=== PATIENT | male | born 1970 | race Caucasian/White ===

== ENCOUNTER 2024-07-06 21:42 | Emergency (ER) | payer OTHER, SELFPAY ==
[2024-07-06 21:55] VITALS: BP 143/90
[2024-07-06 22:27] LABS: ALT (SGPT) 30 U/L (0-50); AST (SGOT) 28 U/L (17-59); Albumin 4.3 g/dl (3.5-5.0); Alkaline Phosphatase 64 U/L (38-126); Blood Urea Nitrogen 20 mg/dl (9-20); Calcium 9.9 mg/dl (8.4-10.2); Carbon Dioxide 26 mmol/L (22-30); Chloride 105 mmol/L (98-107); Glucose 112 mg/dl (70-99); Potassium 3.7 mmol/L (3.5-5.1); Sodium 140 mmol/L (135-145); Total Bilirubin 0.7 mg/dl (0.2-1.3); Total Protein 6.6 g/dl (6.3-8.2); eGFR > 60.00
[2024-07-06 22:38] LABS: Troponin I < 0.012 ng/ml
[2024-07-06 23:24] VITALS: BMI 30.6
[2024-07-06 23:27] VITALS: BP 126/81
[2024-07-06 23:28] VITALS: BP 126/81
[2024-07-07] VITALS: BP 134/80
--- NOTE | 2024-07-07 00:18 | ED.GENMED ---
History of Present Illness
General
Chief Complaint: Cardiac Symptoms
Source: patient
Exam Limitations: none
Time Seen by Provider: 07/06/24 23:26
Nursing documentation reviewed up to this point in time: agreed with
History of Present Illness
History of Present Illness:
53-year-old male with history of HTN, HLD presents for episode of 'galloping heartbeat'. He states a month ago he had that symptom and at that time his blood pressure was elevated, he saw Dr. Marino who is his sheet sewer for his blood pressure
and he was told nothing had to be done at that time but if it happens again he discussed possibly a Holter monitor would be needed.
Patient states at 715 this evening getting dinner around in his kitchen he felt his heart rate suddenly become irregular and felt like it was 'beating really hard,' heart rate was 85 blood pressure was 140/90 at that time. He denies shortness of
breath or chest pain. He states the symptoms lasted off and on for about 2 hours. They subsided once he got here and he has had no further episodes.
Drinks 2 cups of coffee daily and has had no more than that.
Past History
Past History
ED Past Medical History: HTN and Hypercholesterolemia
Social History
Tobacco: Non-smoker
Alcohol: None
Personal:
Living: with family
Employment: Employed
Review of Systems
Review of Systems
Allergies reviewed?: Yes
All Other Systems: ROS reviewed and negative except as documented in HPI and ROS
Constitutional: Denies fever or fatigue
Respiratory: Denies trouble breathing
Cardiac: Reports palpitations; Denies chest pain
ABD/GI: Denies abdominal pain or nausea
Musculoskeletal: Reports no symptoms
Skin: Reports no symptoms
Neurological: Reports no symptoms
Phy Exam
Physical Exam
Physical Exam:
GENERAL: No acute distress. A&Ox3.
CONSTITUTIONAL: Afebrile.
EYES: clear, conjunctivae normal
ENMT: moist mucus membranes
RESPIRATORY: Regular respirations, nonlabored, lungs clear.
CARDIOVASCULAR: Regular rate and rhythm, no murmurs, no rubs.
GI: Soft, nontender, normal BS
MUSCULOSKELETAL: Moves with ease. Well perfused.
SKIN: Warm, dry, pink
PSYCH: Normal mood and affect. Well kept, interactive and appropriate
NEUROLOGIC: Awake, alert and oriented. No focal neurological deficits
Course
Orders/Labs/Results
Orders:
Orders
07/06/24 21:43
Electrocardiogram (*1) Urgent
Reason for Study: Chest Pain
EKG- Treatment ONCE
07/06/24 22:06
Comprehensive Metabolic Panel Urgent
Troponin I Urgent
07/06/24 22:25
Complete Blood Count/With Diff Urgent
07/07/24 00:25
Add On- LAB Urgent
Tests Added?: TSH
Abnormal Lab Results
07/06/24
22:06
Glucose 112 H mg/dl
(70-99)
07/06/24 22:06
Vital Signs
Initial and Last Documented VS:
Initial Vital Signs
Temp Pulse Resp BP Pulse Ox
98.5 F 76 18 143/90 98
07/06/24 21:55 07/06/24 21:55 07/06/24 21:55 07/06/24 21:55 07/06/24 21:55
Last Documented Vital Signs
Temp Pulse Resp BP Pulse Ox
97.8 F 66 18 126/81 94
07/06/24 23:28 07/06/24 23:28 07/06/24 23:28 07/06/24 23:28 07/06/24 23:28
MDM/Problems Addressed
Differential Diagnosis Includes:
PVCs, PACs, A-fib
MDM/Problems Addressed:
53-year-old male with history of HTN, HLD presents for episode of 'galloping heartbeat'. He states a month ago he had that symptom and at that time his blood pressure was elevated, he saw Dr. Marino who is his sheet sewer for his blood pressure
and he was told nothing had to be done at that time but if it happens again he discussed possibly a Holter monitor would be needed.
Patient states at 715 this evening getting dinner around in his kitchen he felt his heart rate suddenly become irregular and felt like it was 'beating really hard,' heart rate was 85 blood pressure was 140/90 at that time. He denies shortness of
breath or chest pain. He states the symptoms lasted off and on for about 2 hours. They subsided once he got here and he has had no further episodes.
Drinks 2 cups of coffee daily and has had no more than that.
07/03/2024 12:15 AM
CBC was hemolyzed and patient does not want to wait for another draw
CMP normal
Troponin normal
EKG NSR
Patient will call Dr. Freitas's office tomorrow to discuss his visit
ED Attending Note
-
Portions of this chart may have been created with voice recognition software.� Occasional wrong word or��sound alike� substitutions may have occurred due to the inherent limitations of voice recognition software.
Discharge Plan
Departure
Patient Disposition: Home (Routine Discharge)
Date of Disposition: 07/07/24
Time of Disposition: 00:23
Patient with high blood pressure during this ER visit?: No
Condition: Good
Discharge Problem:
Heart palpitations
Instructions: Overview of heart arrhythmias, Palpitations - ED discharge instructions
Prescriptions:
No Action
lisinopril 5 mg Tablet
5 mg PO DAILY
Referrals:
Guille Marino MD [Active] - Tomorrow
Naz Bhatt CRNP [Family Provider] -
Activity Restrictions/Additional Instructions:
As we discussed, nothing worrisome in your workup here today.
Call Dr. Marino's office tomorrow and inform them of today's visit
Interventions
Interventions:
*Risk Screen - Suicide Last Done: 07/06/24 21:55
*General Assessment Last Done: 07/06/24 21:55
*Neglect/Abuse Screening Last Done: 07/06/24 21:55
*ED- Fall Risk Assessment Last Done: 07/06/24 21:55
*ED COVID-19 Vaccine History Last Done: 07/06/24 21:55
ED- Pulmonary Assessment Last Done: 07/06/24 23:29
ED- Cardiac Assessment Last Done: 07/06/24 23:29
Discharge Date and Time
Print Language: LITHUANIAN
== END 2024-07-07 00:34 | disposition home or self-care (01) ==
LOC: EMR 21:42
PROVIDERS: Emergency Medicine; EMERGENCY PHYSICIAN Emergency Medicine; FAMILY PHYSICIAN Nurse Practitioner; REFERRING PHYSICIAN Internal Medicine
DX: R00.2 Palpitations (principal); I10 Essential (primary) hypertension; E78.00 Pure hypercholesterolemia, unspecified
CPT/HCPCS: 99283; 80053; 84443; 84484; 93005

== ENCOUNTER → 2024-08-22 11:12 | Outpatient (REF) | payer OTHER, SELFPAY | LOC: RCS 11:12 | PROVIDERS: ATTENDING PHYSICIAN Internal Medicine; FAMILY PHYSICIAN Nurse Practitioner | DX: R09.89 Other specified symptoms and signs involving the circulatory and respiratory systems (principal); R00.2 Palpitations | CPT/HCPCS: 93306 ==

== ENCOUNTER 2025-02-20 13:42 | Emergency (ER) | payer OTHER, SELFPAY ==
[2025-02-20 13:55] VITALS: BP 155/90
[2025-02-20 14:25] LABS: Hematocrit 42.9 % (39.0-52.0); Hemoglobin 14.8 g/dL (13.0-18.0); Mean Corp Hgb Conc. 34.5 g/dL (33.0-37.0); Mean Corpuscular Volume 79.9 fL (80.0-94.0); Nucleated Red Blood Cells % 0 % (-); Platelet Count 210 10^3/uL (130-400); Red Cell Dist. Width 12.4 % (11.5-14.5)
[2025-02-20 14:30] LABS: APTT 27.8 Sec (23.4-35.0)
[2025-02-20 14:39] LABS: ALT (SGPT) 50 U/L (0-50); AST (SGOT) 37 U/L (17-59); Albumin 4.7 g/dl (3.5-5.0); Alkaline Phosphatase 83 U/L (38-126); Blood Urea Nitrogen 19 mg/dl (9-20); Calcium 9.5 mg/dl (8.4-10.2); Carbon Dioxide 30 mmol/L (22-30); Chloride 100 mmol/L (98-107); Glucose 81 mg/dl (70-99); Potassium 4.2 mmol/L (3.5-5.1); Sodium 137 mmol/L (135-145); Total Protein 7.2 g/dl (6.3-8.2); eGFR > 60.00
[2025-02-20 16:53] VITALS: BMI 35.0
[2025-02-20 16:55] VITALS: BP 147/89
[2025-02-20 17:00] VITALS: BP 144/84
--- NOTE | 2025-02-20 17:11 | ED.GENMED ---
History of Present Illness
General
Chief Complaint: Cardiac Symptoms
Source: patient
Exam Limitations: none
Time Seen by Provider: 02/20/25 16:45
Nursing documentation reviewed up to this point in time: agreed with
History of Present Illness
History of Present Illness:
Note:
CHIEF COMPLAINT(S)
Palpitations and concerns of atrial fibrillation.
HISTORY OF PRESENT ILLNESS
The patient is a 54-year-old male who has been experiencing episodes of palpitations characterized as a fluttery sensation in the chest. These episodes do not involve anxiety, although some family members perceive it as such. A two-week heart
monitor test confirmed the presence of paroxysmal atrial fibrillation. Subsequently, the patient was prescribed Metoprolol and had been taking Lisinopril for the past three to six months. The Metoprolol was initiated a few days ago. Blood pressure
readings have been elevated during these episodes, recorded as high as 155/95 mmHg, while heart rates have reached up to the 140s. The patient denies experiencing chest pain but acknowledges an unnatural sensation due to the heart racing.
Significant family history includes a father who had a heart attack at 38 and a grandfather who at 40. Current medications are Metoprolol 25 mg and Lisinopril, but the patient is uncertain about the Lisinopril dosage.
The patients recent blood work and electrolytes are reported as normal, and the EKG showed normal sinus rhythm at the time of evaluation. Blood pressure in the emergency department was recorded as 147/88 mmHg, considered slightly elevated but not
warranting immediate intervention in this setting. Discussions included the potential need for anticoagulation due to increased stroke risk from atrial fibrillation; apixaban was suggested as a possible option, and the patient was informed about the
associated risks of bleeding.
CHRONIC MEDICAL CONDITIONS SIGNIFICANTLY AFFECTING CARE
Hypertension managed with Lisinopril.
PHYSICAL EXAM
General: Alert, no acute distress.
Skin: Warm, dry.
Head: Normocephalic, atraumatic.
Neck: Supple, trachea midline.
Eye, Ears, Nose, Mouth, and Throat: Oral mucosa moist.
Cardiovascular: Normal peripheral perfusion, no edema. regular rhythm
Respiratory: Respirations are non-labored.
Gastrointestinal: Abdomen nondistended.
Back: Normal range of motion, normal alignment.
Musculoskeletal: Normal range of motion, normal strength.
Neurological: Alert and oriented to person, place, time, and situation, no focal neurological deficit observed.
Psychiatric: Cooperative, appropriate mood & affect.
PROBLEM LIST
Acute: Paroxysmal atrial fibrillation
Chronic: Hypertension
PLAN
The patient was advised on the consideration of anticoagulant therapy to reduce the risk of stroke due to atrial fibrillation episodes. The options and risks associated with taking blood thinners, such as apixaban, were discussed. The patient will
consult with their senior design engineering specialist or primary care doctor to finalize the decision on anticoagulation and any potential adjustments to their current medications. Communicating with the cardiology team is recommended for further management and possible
medication adjustments, including verification of Lisinopril dosage.
DIFFERENTIAL DIAGNOSIS
The Differential Diagnosis includes, in no particular order and is not limited to:
1. Paroxysmal atrial fibrillation
2. Anxiety disorders
3. Hypertension-related symptoms
4. Hyperthyroidism
5. Cardiac arrhythmia (other than atrial fibrillation)
6. Panic disorder
7. Medication side effects
8. Electrolyte imbalances
9. Structural heart disease
10. Stress-related palpitations.
EKG
My independent EKG interpretation is:
- Time of EKG: Not specified
- Rhythm: Normal sinus rhythm
- Heart Rate: 67 bpm
- CT Interval: Normal
- QRS Duration: Normal
- QT Interval: Normal
- [place]: Normal
- Abnormalities: None observed
Disposition:
SUMMARY OF ENCOUNTER
The patient was seen in the emergency department for episodes of palpitations. A two-week heart monitor confirmed paroxysmal atrial fibrillation. During these episodes, blood pressure has been as high as 155/95 mmHg and heart rates in the 140s.
After discussion with Dr. Forrester, the on-call senior design engineering specialist, the decision was made to start the patient on apixaban to reduce the risk of stroke due to atrial fibrillation episodes.
DISPOSITION
Discharge
ASSESSMENT
Paroxysmal atrial fibrillation
PLAN
The patient was prescribed apixaban and advised to follow up with Dr. Gibson, his senior design engineering specialist, on Thursday.
INDEPENDENT REVIEW OF LABS AND INTERPRETATION OF TESTS
My independent EKG interpretation is normal sinus rhythm with a heart rate of [address] interval, QRS duration, QT interval, and axis.
PATIENT EDUCATION AND COUNSELING
Discussed the risks associated with atrial fibrillation, including increased stroke risk. Explained the benefits and potential bleeding risks associated with starting apixaban.
FOLLOW-UP INSTRUCTIONS
The patient is advised to follow up with his senior design engineering specialist, Dr. Gibson, on Thursday.
MEDICATION RECONCILIATION
Prescribed apixaban.
MEDICAL DECISION MAKING
- Complexity of Data Reviewed: Chronic conditions affecting care include hypertension. The differential diagnosis considered includes paroxysmal atrial fibrillation, anxiety disorders, hypertension-related symptoms, hyperthyroidism, cardiac
arrhythmia (other than atrial fibrillation), panic disorder, medication side effects, electrolyte imbalances, structural heart disease, stress-related palpitations.
- Data:
- Category 1: My independent interpretation of EKG shows normal sinus rhythm.
- Category 3: Discussion of management with Dr. Cardozo, the on-call senior design engineering specialist.
- Risk: Prescription medication was prescribed, apixaban.
DIAGNOSIS
- Paroxysmal atrial fibrillation (ICD-10: I48.0)
Past History
Past History
ED Past Medical History: HTN and Hypercholesterolemia
Social History
Tobacco: Non-smoker
Alcohol: None
Personal:
Living: with family
Employment: Employed
Phy Exam
Physical Exam
Physical Exam:
,
Scores
[id number] Score for Afib Stroke Risk
Age in Years (65=0, 65-74=1, >/=75=2): <65
Sex (Female=+1): Male
Congestive Heart Failure History (Yes=+1): No
Hypertension History (Yes=+1): Yes
Stroke/TIA/Thromboembolism History (Yes=+2): No
Vascular Disease History (Yes=+1): No
Diabetes Mellitus (Yes=+1): No
Score: 1
Anticoagulation Recommendations: Consider anticoagulation (as validated in nonvalvular fib)
Course
Orders/Labs/Results
Orders:
Orders
02/20/25 13:59
Electrocardiogram (*1) Urgent
Reason for Study: Atrial Fibrillation
EKG- Treatment ONCE
02/20/25 14:09
Complete Blood Count/With Diff Urgent
Comprehensive Metabolic Panel Urgent
PTT Urgent
02/20/25 17:19
Add On- LAB Urgent
Tests Added?: T4
Abnormal Lab Results
02/20/25
14:09
MCV 79.9 L fL
(80.0-94.0)
02/20/25 14:09
02/20/25 14:09
Vital Signs
Initial and Last Documented VS:
Initial Vital Signs
Temp Pulse Resp BP Pulse Ox
98.4 F 70 16 155/90 98
02/20/25 13:55 02/20/25 13:55 02/20/25 13:55 02/20/25 13:55 02/20/25 13:55
Last Documented Vital Signs
Temp Pulse Resp BP Pulse Ox
98.4 F 63 16 144/84 99
02/20/25 13:55 02/20/25 17:00 02/20/25 17:00 02/20/25 17:00 02/20/25 17:12
*Pulse Oximetry
SaO2: 99
Oxygen Mode of Delivery: Room air
Patient hypoxic: no
*Critical Care Note
Total Time (30-74mins, 75-104mins- exclusive of procedures): Not Applicable
ED Attending Note
-
Portions of this chart may have been created with voice recognition software.� Occasional wrong word or��sound alike� substitutions may have occurred due to the inherent limitations of voice recognition software.
Discharge Plan
Departure
Patient Disposition: Home (Routine Discharge)
Date of Disposition: 02/20/25
Time of Disposition: 17:26
Patient with high blood pressure during this ER visit?: Yes
Condition: Good
Discharge Problem:
Paroxysmal atrial fibrillation
Instructions: Atrial fibrillation (DC), BLOOD PRESSURE
Prescriptions:
New
Eliquis 5 mg tablet
5 mg PO BID Qty: 60 0RF
No Action
lisinopril 5 mg Tablet
5 mg PO DAILY
Referrals:
Guille Marino MD [Active, Cardiology] - 02/22/25 8:00 am
Referral Note: [facility]
Interventions
Interventions:
*Risk Screen - Suicide Last Done: 02/20/25 13:55
*General Assessment Last Done: 02/20/25 16:57
*Neglect/Abuse Screening Last Done: 02/20/25 16:57
*ED COVID-19 Vaccine History Last Done: 02/20/25 16:57
*ED Influenza Vaccine History Last Done: 02/20/25 16:57
[facility] Fall Risk Assessment Tool Last Done: 02/20/25 16:55
ED- Pulmonary Assessment Last Done: 02/20/25 16:57
ED- Cardiac Assessment Last Done: 02/20/25 16:57
Discharge Date and Time
Print Language: NIUEAN
== END 2025-02-20 17:44 | disposition home or self-care (01) ==
LOC: EMR 13:42
PROVIDERS: Student in an Organized Health Care Education/Training Program; EMERGENCY PHYSICIAN Emergency Medicine; FAMILY PHYSICIAN Nurse Practitioner; REFERRING PHYSICIAN Internal Medicine
DX: I48.0 Paroxysmal atrial fibrillation (principal); I10 Essential (primary) hypertension; E78.00 Pure hypercholesterolemia, unspecified; Z79.01 Long term (current) use of anticoagulants; Z82.49 Family history of ischemic heart disease and other diseases of the circulatory system
CPT/HCPCS: 99284; 80053; 84436; 85025; 85730; 93005

== ENCOUNTER → 2025-03-07 11:13 | Outpatient (REF) | payer OTHER, SELFPAY | LOC: HWRCS 11:13 | PROVIDERS: ATTENDING PHYSICIAN Internal Medicine; FAMILY PHYSICIAN Nurse Practitioner | DX: I48.0 Paroxysmal atrial fibrillation (principal); I47.20 Ventricular tachycardia, unspecified; R09.89 Other specified symptoms and signs involving the circulatory and respiratory systems; E78.2 Mixed hyperlipidemia; Z87.891 Personal history of nicotine dependence | CPT/HCPCS: 78452; 93017; A9500 ==